=== PATIENT | female | born 1935 | race Caucasian/White ===

== ENCOUNTER 2016-03-10 11:58 | Emergency (ER) | payer MEDICARE ==
[2016-03-10 12:53] LABS: PTT 26.6 SEC (22.9-36.1); Prothrombin Time 13.4 SEC (12.0-14.7)
[2016-03-10 12:54] LABS: #Basophils 0.1 thou/uL (0.0-0.2); #Eosinphils 0.3 thou/uL (0.0-0.7); #Lymphocytes 1.7 thou/uL (1.20-3.40); #Monocytes 0.8 thou/uL (0.11-0.59); #Neutrophils 4.7 thou/uL (1.40-6.50); %Basophils 1.4 % (0.0-1.0); %Eosinophils 4.6 % (0.0-10.0); %Monocytes 9.9 % (0.0-10.0); %Neutrophils 62.2 % (42.0-75.0); Hemoglobin 11.3 g/dL (12.0-16.0); Mean Corpuscular HGB CONC 33.8 g/dL (32.0-36.0); Mean Corpuscular Hemoglobin 28.9 pg (27.0-31.0); Mean Corpuscular Volume 85.7 fl (81.0-99.0); Mean Platelet Volume 8.7 fL (7.4-10.4); Platelet Count 189 thou/uL (130-400); RBC Distribution Width 13.7 % (11.5-14.5); Red Blood Cell (RBC) Count 3.91 mill/uL (4.20-5.40); White Blood Cell (WBC) Count 7.6 thou/uL (4.8-10.8)
[2016-03-10 12:55] LABS: D-Dimer Test 0.57 *mcg/mL (0.27-0.43)
[2016-03-10 13:04] LABS: ALT (SGPT) 15 U/L (0-55); AST (SGOT) 17 U/L (5-34); Albumin 3.5 g/dL (3.4-4.8); Alkaline Phosphatase 86 U/L (40-150); Anion Gap 13 mmol/L (10-20); BUN (Urea Nitrogen) 18 mg/dL (9.8-20.1); Bilirubin, Total 0.3 mg/dL (0.2-1.2); CK (CPK) 57 U/L (29-168); Calc. Creatinine Clearance 0 mL/min (70-130); Carbon Dioxide 25 mmol/L (23-31); Chloride 102 mmol/L (98-107); Estimated GFR-MDRD 77; Globulin 3.1 g/dL (2.4-3.5); Glucose 83 mg/dL (83-110); Potassium 4.3 mmol/L (3.5-5.1); Protein, Total 6.6 g/dL (5.8-8.1); Sodium 136 mmol/L (136-145)
[2016-03-10 13:06] LABS: CKMB 1.4 ng/mL (0-6.6); Troponin I Less than 0.010 ng/mL (< 0.028)
--- NOTE | 2016-03-10 13:40 | RAD ---
RADIOGRAPH CHEST 1 VIEW: HISTORY: An 80-year-old female with acute chest pain. FINDINGS: The thoracic aorta is tortuous and ectatic. There is no evidence of air space density, pneumothorax , or pulmonary edema. The lateral costophrenic angles are sharp. IMPRESSION: 1) No acute pulmonary findings. 2) Ectasia of thoracic aorta. familia [] POS: TIANNA
--- NOTE | 2016-03-10 15:35 | ERRECORD ---
[facility] EMERGENCY RECORD HPI CHEST PAIN CHIEF COMPLAINT: Patient presents for evaluation of chest pain, that was present but has now resolved, Denies automated implantable cardioverter-defibrillator event, Patient presents for evaluation of earlier this morning had a period of chest pressure/heaviness. mild. no sob or nausea or diaphoresis. no radiation. resolved after a brief period but pt cannot tell me how long it lasted. last night felt some discomfort in the left calf and was seen by home health this morning because the mild discomfort persisted. calves measure the same. edwin's neg. no pain to palpation. (13:03 LLDO) HISTORIAN: History provided by patient, History provided by patient's family, DAUGHTER. (13:03 LLDO) LOCATION: Symptoms are generalized. (13:03 LLDO) SEVERITY: Maximum severity of symptoms moderate, Currently there are no symptoms. (14:46 LLDO) TIME COURSE: Sudden onset of symptoms, Symptoms have resolved, are constant, chest pain has resolved but calf pain has not. (14:46 LLDO) ASSOCIATED WITH: No associated symptoms, Denies any other complaints. (14:46 LLDO) EXACERBATED BY: Patient's condition exacerbated by nothing. (14:46 LLDO) RELIEVED BY: Patient's condition relieved by time. (14:46 LLDO) RISK FACTORS: Coronary artery disease risk factors, include known coronary artery disease, include hypertension, Thoracic aortic dissection risk factors, include hypertension, Pulmonary embolism risk factors, not applicable to this patient. (14:46 LLDO) HEART SCORE: Patients history is Slightly Suspicious (0), Patients ECG is normal (0), Patients age is equal to or greater than 65 years (2), Patient has 1 or 2 risk factors (1), Total 3. (14:46 LLDO) WELLS CRITERIA FOR PE: Total 0. (14:46 LLDO) ROS CONSTITUTIONAL: Negative constitutional review of systems. (14:50 LLDO) EYES: Negative eye review of systems, Historian denies eye pain, denies eye redness, denies eye discharge. (14:56 LLDO) ENT: Negative ears, nose, throat review of systems, Historian denies epistaxis, denies rhinorrhea, denies sinus pain, denies sore throat. (14:56 LLDO) CARDIOVASCULAR: Historian reports chest pain, chest pain now resolved. (14:50 LLDO) RESPIRATORY: Negative respiratory review of systems, Historian denies cough, denies shortness of breath, denies sputum. (14:56 LLDO) GI: Negative gastrointestinal review of systems, Historian denies abdominal pain, denies constipation, denies diarrhea, denies nausea, denies vomiting. (14:56 LLDO) &a-1R&a+25V*p+0X*[id number]*c202B*c15G*c2P*p-0X&a-25V&a+1R Name: Vianey Downing : 1935 F80 MedRec: [id number] AcctNum: [id number] Prepared: Leighann Mar 10, 2016 15:39 by Interface Page 1 of 5 pMD [facility] EMERGENCY RECORD GENITOURINARY FEMALE: Negative genitourinary review of systems, Historian denies dysuria, denies frequency, denies urgency. (14:56 LLDO) MUSCULOSKELETAL: ONLY IN HPI W/ LEFT CALF PAIN. (14:50 LLDO) SKIN: Negative skin review of systems, Historian denies cellulitis, denies rash, denies skin changes, denies skin lesions. (14:56 LLDO) NEUROLOGIC: Negative neurologic review of systems, Historian denies confusion, denies dizziness, denies focal weakness, denies mental status changes. (14:56 LLDO) HEMO/LYMPHATIC: Normal hematologic/lymphatic system review, Historian denies abnormal blood clotting, denies gum bleeding, denies petechiae. (14:56 LLDO) ALLERGIC/IMMUNOLOGIC: Normal allergy/immunologic system review, Historian denies eczema, denies environmental allergies, denies food allergies. (14:56 LLDO) PSYCHIATRIC: Negative psychiatric review of systems, Historian denies alcohol abuse, denies anxiety, denies depression, denies drug abuse, denies hallucinations. (14:56 LLDO) NOTES: All systems reviewed, negative except as described above. (14:50 LLDO) PAST MEDICAL HISTORY MEDICAL HISTORY: Past medical history includes neurological disease, Alzheimer's disease, dementia, Past medical history includes pulmonary disease, chronic obstructive pulmonary disease, chronic bronchitis, Past medical history includes cardiac history, Past medical history includes history of hypertension, which has been treated, Patient is compliant, Past medical history includes musculoskeletal disorder, osteoporosis, Past medical history includes pulmonary disease, chronic obstructive pulmonary disease. (12:23 CJEF) FEMALE SURGICAL HISTORY: Surgical history of hysterectomy, L MASTECTOMY. NASAL SX. (12:23 CJEF) PSYCHIATRIC HISTORY: Notes: DEPRESSION DEMENTIA. (12:23 CJEF) NOTES: Nursing records reviewed, Agree with nursing records, Old chart reviewed, Medication list reviewed. (14:55 LLDO) KNOWN ALLERGIES naproxen Sulfa (Sulfonamide Antibiotics) Zithromax Oral CURRENT MEDICATIONS Spiriva with HandiHaler: CAPSULE, WITH INHALATION DEVICE : Strength - 18 mcg : INHALATION Patient Dose: once a day. (12:39 CJEF) &a-1R&a+25V*p+0X*[id number]*c202B*c15G*c2P*p-0X&a-25V&a+1R Name: Vianey Downing : 1935 F80 MedRec: [id number] AcctNum: [id number] Prepared: [facility] Mar 10, 2016 15:39 by Interface Page 2 of 5 pMD [facility] EMERGENCY RECORD Zoloft: TABLET : Strength - 100 mg : ORAL Patient Dose: 100 mg Oral once a day. (12:39 CJEF) Daliresp: TABLET : Strength - 500 mcg : ORAL Patient Dose: 500 mg Oral once a day. (12:40 CJEF) Evista: TABLET : Strength - 60 mg : ORAL Patient Dose: 60 mg Oral once a day. (12:40 CJEF) Miralax: POWDER IN PACKET (EA) : Strength - 17 gram : ORAL Patient Dose: 17 g Oral As Needed. (12:40 CJEF) Singulair: TABLET : Strength - 10 mg : ORAL Patient Dose: 10 mg once a day (in the evening). (12:41 CJEF) Namenda: TABLET : Strength - 10 mg : ORAL Patient Dose: 10 mg Oral 2 times a day. (12:41 CJEF) Cardizem CD: CAPSULE, EXT RELEASE 24 HR : Strength - 120 mg : ORAL Patient Dose: 120 mg Oral once a day. (12:42 CJEF) ZyrTEC: CAPSULE : Strength - 10 mg : ORAL Patient Dose: 10 mg Oral once a day. (12:42 CJEF) Symbicort: HFA AEROSOL WITH ADAPTER (GRAM) : Strength - 160 mcg-4.5 mcg/actuation : INHALATION Patient Dose: 2 puff(s) Inhaler 2 times a day. (12:43 CJEF) Tessalon Perles: CAPSULE : Strength - 100 mg : ORAL Patient Dose: 200 mg Oral As Needed. (12:44 CJEF) aspirin: TABLET : Strength - 81 mg : ORAL Patient Dose: 81 mg Oral once a day. (12:44 CJEF) ProAir HFA: HFA AEROSOL WITH ADAPTER (GRAM) : Strength - 90 mcg : INHALATION Patient Dose: 2 puff(s) Inhaler every 6 hours PRN. (12:45 CJEF) Wellbutrin: TABLET : Strength - 100 mg : ORAL Patient Dose: Unknown. (12:47 CJEF) VITAL SIGNS VITAL SIGNS: BP: 138/77, Pulse: 74, Resp: 18, Pain: 3, O2 sat: 96 on Room Air, Time: 03/10/2016 12:10. (12:10 CJEF) BP: 136/85, Pulse: 87, Resp: 18, Temp: 98.2 (Oral), Pain: 3, O2 sat: 96 on Room Air, Time: 03/10/2016 12:45. (12:45 CJEF) BP: 135/92, Pulse: 81, Resp: 16, Pain: 3, O2 sat: 99 on Room Air, Time: 03/10/2016 13:41. (13:41 CJEF) &a-1R&a+25V*p+0X*[id number]*c202B*c15G*c2P*p-0X&a-25V&a+1R Name: Vianey Downing : 1935 F80 MedRec: [id number] AcctNum: [id number] Prepared: [facility] Mar 10, 2016 15:39 by Interface Page 3 of 5 pMD [facility] EMERGENCY RECORD BP: 140/85, Pulse: 78, Resp: 18, O2 sat: 98 on Room Air, Time: 03/10/2016 14:38. (14:38 CJEF) BP: 135/82, Pulse: 81, Resp: 18, Temp: 98 (Oral), Pain: 3, O2 sat: 98 on Room Air, Time: 03/10/2016 15:31. (15:31 [facility]) PHYSICAL EXAM CONSTITUTIONAL: Vital Signs Reviewed, Patient afebrile, Pulse normal, Blood pressure normal bilaterally, Respiratory rate normal, Patient appears, uncomfortable, Patient appears, in mild pain distress, Patient alert and oriented to person, place and time, Nursing notes reviewed. (14:52 LLDO) HEAD: Head exam normal, Head exam included findings of head atraumatic, normocephalic. (14:56 LLDO) EYES: Eye exam normal, Eye exam included findings of eyelids normal to inspection, Pupils equally round and reactive to light, Extraocular muscles intact. (14:56 LLDO) ENT: ENT exam normal, Ear exam normal, Nose exam normal. (14:56 LLDO) NECK: Neck exam normal, Neck exam included findings of normal range of motion, Trachea midline, no meningeal signs, no tenderness. (14:56 LLDO) RESPIRATORY CHEST: Respiratory and chest exam normal, Respiratory exam included findings of, Chest exam included findings of chest movement symmetrical, Chest expansion equal. (14:56 LLDO) CARDIOVASCULAR: Cardiovascular assessment normal, Cardiovascular exam included findings of heart rate regular rate and rhythm, Heart sounds normal. (14:56 LLDO) ABDOMEN FEMALE: Abdominal exam normal, Abdominal exam included findings of abdomen nontender, Bowel sounds normal, no peritoneal signs. (14:56 LLDO) BACK: Back exam normal, Back exam included findings of normal inspection, range of motion normal. (14:56 LLDO) UPPER EXTREMITY: Upper extremity exam normal, Upper extremity exam included findings of inspection normal, Range of motion normal. (14:56 LLDO) LOWER EXTREMITY: Lower extremity exam included findings of inspection normal, Range of motion normal, Motor strength, 2/5 on the left, 3/5 on the right, Sensation intact, Posterior tibial pulse normal, Pedal pulse normal, Edwin's negative, Calf tenderness, to the left lower extremity, very mild. (14:52 LLDO) NEURO: Neuro exam findings include patient oriented to person, place and time, Speech normal, Gait normal, Memory normal, Cranial nerves intact, Deep tendon reflexes normal, Focal motor deficits include, Focal sensory deficits include, Cerebellar deficits include. (14:52 LLDO) SKIN: Skin exam normal, Skin exam included findings of skin warm, dry, and normal in color, no rash. (14:56 LLDO) &a-1R&a+25V*p+0X*w2945V*c202B*c15G*c2P*p-0X&a-25V&a+1R Name: Vianey Downing : 1935 F80 MedRec: [id number] AcctNum: [id number] Prepared: Leighann Mar 10, 2016 15:39 by Interface Page 4 of 5 pMD [facility] EMERGENCY RECORD PSYCHIATRIC: Psychiatric exam normal, Psychiatric exam included findings of patient oriented to person place and time, Normal affect. (14:56 LLDO) DOCTOR NOTES (15:27 LLDO) TEXT: accepted by dr. delong at [facility] PROBLEM LIST No recorded problems DIAGNOSIS (15:28 LLDO) FINAL: PRIMARY: dvt, left lower leg. PRESCRIPTION No recorded prescriptions DISPOSITION PATIENT: Disposition Type: Transfer, Disposition: [facility]. (15:28 LLDO) Patient left the department. (15:36 [facility]) Daniels: SARAHI=LALO Stafford, Ghada LLDO=MD Bisi, Misbah &a-1R&a+25V*p+0X*[id number]*c202B*c15G*c2P*p-0X&a-25V&a+1R Name: Vianey Downing : 1935 F80 MedRec: [id number] AcctNum: [id number] Prepared: Leighann Mar 10, 2016 15:39 by Interface Page 5 of 5 pMD [facility]
--- NOTE | 2016-03-10 15:41 | PICIS ---
[facility] EMERGENCY RECORD TRIAGE (MonMar 10, 2016 12:11 CJEF) TRIAGE NOTES: LEFT CALF PAIN AND LEFT CHEST PRESSURE. (MonMar 10, 2016 12:11 CJEF) PATIENT: NAME: Vianey Downing, AGE: 80, GENDER: female, : Sat 1935, TIME OF GREET: MonMar 10, 2016 11:59, PREFERRED LANGUAGE: Armenian, ETHNICITY: Not or , ECODE BILLING MAP: [facility], SSN: [id number], Zip Code: [address], KG WEIGHT: 40.82, PHONE: (BEATRIS), , , PERSON ID: [id number]. (MonMar 10, 2016 12:11 CJEF) COMPLAINT: LT CALF PAIN/ CHEST PRESSURE. (MonMar 10, 2016 12:11 CJEF) ADMISSION: URGENCY: 2 Emergent, ADMISSION SOURCE: Doctor's Office, TRANSPORT: Walk-in, BED: TRIAGE. (MonMar 10, 2016 12:11 CJEF) ASSESSMENT: Assessment: PT REPORTS LEFT CALF PAIN THAT STARTED LAST NIGHT. PT WAS SEEN BY HOME HEALTH NURSE WHO REPORTED THAT PT CALFS MEASURED THE SAME AND THAT NO WARMTH WAS NOTED TO THE LEFT CALF. PT ALSO REPORTS LEFT CHEST PRESSURE THAT STARTED THIS MORNING, THOUGH IS NO LONGER PRESENT. (12:23 CJEF) PAIN: Patient complains of pain described as, Location LEFT CALF. (12:23 CJEF) IMMUNIZATIONS: Flu vaccine up to date, Tetanus not up to date, Pneumococcal vaccine up to date. (12:23 CJEF) SIRS SCORING: Heart Rate 55-109 (0), Temp range 96.8-101.1 (0), respiratory rate 12-24 (0), Mental Status altered: no (0), Infection or Suspected Infection: No. (12:23 CJEF) TRIAGE SCREENING: Patient denies suicidal ideation, Patient denies presence of domestic violence. (12:23 CJEF) LMP: LMP: Hysterectomy. (12:23 CJEF) PROVIDERS: TRIAGE NURSE: Ghada Stafford RN. (MonMar 10, 2016 12:11 CJEF) VITAL SIGNS: BP 138/77, Pulse 74, Resp 18, Pain 3, O2 Sat 96, on Room Air, Time 03/10/2016 12:10. (12:10 CJEF) PREVIOUS VISIT ALLERGIES: naproxen, Sulfa (Sulfonamide Antibiotics), Zithromax Oral. (MonMar 10, 2016 12:11 CJEF) naproxen, Sulfa (Sulfonamide Antibiotics), Zithromax Oral. (12:23 CJEF) KNOWN ALLERGIES naproxen Sulfa (Sulfonamide Antibiotics) Zithromax Oral CURRENT MEDICATIONS Spiriva with HandiHaler: CAPSULE, WITH INHALATION DEVICE : Strength - 18 mcg : INHALATION Patient Dose: once a day. (12:39 CJEF) Zoloft: TABLET : Strength - 100 mg : ORAL Patient Dose: 100 mg Oral once a day. (12:39 CJEF) &a-1R&a+25V*p+0X*v6899H*c202B*c15G*c2P*p-0X&a-25V&a+1R Name: Vianey Downing Ace : 1935 F80 MedRec: [id number] AcctNum: [id number] Prepared: MonMar 10, 2016 15:45 by Interface Page 1 of 13 pMD [facility] EMERGENCY RECORD Daliresp: TABLET : Strength - 500 mcg : ORAL Patient Dose: 500 mg Oral once a day. (12:40 CJEF) Evista: TABLET : Strength - 60 mg : ORAL Patient Dose: 60 mg Oral once a day. (12:40 CJEF) Miralax: POWDER IN PACKET (EA) : Strength - 17 gram : ORAL Patient Dose: 17 g Oral As Needed. (12:40 CJEF) Singulair: TABLET : Strength - 10 mg : ORAL Patient Dose: 10 mg once a day (in the evening). (12:41 CJEF) Namenda: TABLET : Strength - 10 mg : ORAL Patient Dose: 10 mg Oral 2 times a day. (12:41 CJEF) Cardizem CD: CAPSULE, EXT RELEASE 24 HR : Strength - 120 mg : ORAL Patient Dose: 120 mg Oral once a day. (12:42 CJEF) ZyrTEC: CAPSULE : Strength - 10 mg : ORAL Patient Dose: 10 mg Oral once a day. (12:42 CJEF) Symbicort: HFA AEROSOL WITH ADAPTER (GRAM) : Strength - 160 mcg-4.5 mcg/actuation : INHALATION Patient Dose: 2 puff(s) Inhaler 2 times a day. (12:43 CJEF) Tessalon Perles: CAPSULE : Strength - 100 mg : ORAL Patient Dose: 200 mg Oral As Needed. (12:44 CJEF) aspirin: TABLET : Strength - 81 mg : ORAL Patient Dose: 81 mg Oral once a day. (12:44 CJEF) ProAir HFA: HFA AEROSOL WITH ADAPTER (GRAM) : Strength - 90 mcg : INHALATION Patient Dose: 2 puff(s) Inhaler every 6 hours PRN. (12:45 CJEF) Wellbutrin: TABLET : Strength - 100 mg : ORAL Patient Dose: Unknown. (12:47 CJEF) VITAL SIGNS VITAL SIGNS: BP: 138/77, Pulse: 74, Resp: 18, Pain: 3, O2 sat: 96 on Room Air, Time: 03/10/2016 12:10. (12:10 CJEF) BP: 136/85, Pulse: 87, Resp: 18, Temp: 98.2 (Oral), Pain: 3, O2 sat: 96 on Room Air, Time: 03/10/2016 12:45. (12:45 CJEF) BP: 135/92, Pulse: 81, Resp: 16, Pain: 3, O2 sat: 99 on Room Air, Time: 03/10/2016 13:41. (13:41 CJEF) BP: 140/85, Pulse: 78, Resp: 18, O2 sat: 98 on Room Air, Time: 03/10/2016 14:38. (14:38 CJEF) BP: 135/82, Pulse: 81, Resp: 18, Temp: 98 (Oral), Pain: 3, O2 sat: 98 on &a-1R&a+25V*p+0X*j4631A*c202B*c15G*c2P*p-0X&a-25V&a+1R Name: Vianey Downing : 1935 F80 MedRec: [id number] AcctNum: [id number] Prepared: [facility] Mar 10, 2016 15:45 by Interface Page 2 of 13 pMD [facility] EMERGENCY RECORD Room Air, Time: 03/10/2016 15:31. (15:31 CJEF) NURSING ASSESSMENT: CARDIOVASCULAR (12:23 CJEF) CONSTITUTIONAL: Complex assessment performed, Patient arrives ambulatory, Unsteady gait, Assistance to cart, History obtained from, DAUGHTER, Patient appears, confused, Patient cooperative, Patient alert, Patient is, oriented to person, confused, Skin warm, Skin dry, Skin normal in color, Mucous membranes pink, Mucous membranes moist, Patient is well-groomed, PT REPORTS LEFT CALF PAIN THAT STARTED LAST NIGHT. PT WAS SEEN BY HOME HEALTH NURSE WHO REPORTED THAT PT CALFS MEASURED THE SAME AND THAT NO WARMTH WAS NOTED TO THE LEFT CALF. PT ALSO REPORTS LEFT CHEST PRESSURE THAT STARTED THIS MORNING, THOUGH IS NO LONGER PRESENT. PAIN: aching pain, to the left chest. CARDIOVASCULAR: Cardiovascular assessment findings include heart rate normal, Heart rhythm normal sinus, Heart sounds normal, S1, S2, no associated dyspnea. RESPIRATORY/CHEST: Breath sounds clear, Respiratory assessment findings include respiratory effort easy, Respirations regular, Conversing normally, Neck and chest exam findings include trachea midline, Chest expansion equal, Chest movement symmetrical, no signs of distress, no associated cough noted, no associated fever. NOTES: Patient tolerated procedure well. SAFETY: Side rails up, Cart/Stretcher in lowest position, Family at bedside, Call light within reach, Hospital ID band on. NURSING ASSESSMENT: FALL RISK (12:20 CJEF) FALL RISK: Fall risk assessment findings include: History of falls (5), No bed rest greater than 2 days (0), No use of level of consciousness altering agents with mentation or cognitive changes (0), No change in blood pressure (0), Sensory deficits (1), Impaired mobility (3), Neurologic diagnosis (3), No elimination problems (0), Confusion (3), Total score 15, Fall risk. HENDRICH II FALL RISK: Hendrich II Fall Risk assessment findings include patient confused, disoriented or impulsive(4), not symptomatic or depressed, no altered elimination, no dizziness or vertigo, female, no antiepileptics (anticonvulsants) administered, no Benzodiazepines administered, Unable to rise without assistance during test(4), Total score 8. NURSING ASSESSMENT: SKIN (12:19 CJEF) SKIN: Skin assessment findings include skin warm, Skin dry, Skin normal in color. HIEU SCALE: (3) Sensory perception slightly limited, (4) Skin is rarely moist, (3) Patient walks occasionally, (3) Slightly limited mobility, (3) Adequate nutrition, (3) Patient has no apparent problem moving, Hieu Risk Total: 22. &a-1R&a+25V*p+0X*v1519U*c202B*c15G*c2P*p-0X&a-25V&a+1R Name: Vianey Downing : 1935 F80 MedRec: [id number] AcctNum: [id number] Prepared: Leighann Mar 10, 2016 15:45 by Interface Page 3 of 13 pMD [facility] EMERGENCY RECORD NOTES: Patient tolerated procedure well. SAFETY: Side rails up, Cart/Stretcher in lowest position, Family at bedside, Call light within reach, Hospital ID band on. NURSING PROCEDURE: BEDSIDE RADIOLOGY (13:03 CJEF) PATIENT IDENTIFIER: Patient actively involved in identification process, Patient's identity verified by patient stating name, Patient's identity verified by patient stating date. BEDSIDE RADIOLOGY: Portable chest x-ray performed. NOTES: Patient tolerated procedure well. SAFETY: Side rails up, Cart/Stretcher in lowest position, Family at bedside, Call light within reach, Hospital ID band on. NURSING PROCEDURE: BEDSIDE SIRS TESTING (13:52 CJEF) SCORES: Heart Rate 55-109 (0), Temp range 96.8-101.1 (0), respiratory rate 12-24 (0), Latest WBC 3-14.9 (0), Mental Status altered: no (0), Infection or Suspected Infection: No. NURSING PROCEDURE: OPERATIONS ACCOUNTANT (12:12 CJEF) PATIENT IDENTIFIER: Patient actively involved in identification process, Patient's identity verified by patient stating name, Patient's identity verified by patient stating date. OPERATIONS ACCOUNTANT: Cardiac monitoring indicated for complaint of chest pain, Patient placed on court recording monitor, Heart rate: 73, showing normal sinus rhythm, Patient placed on non-invasive blood pressure monitor, with disposable blood pressure cuff applied, Patient placed on continuous pulse oximetry, Adult/pediatric oxisensor applied. FOLLOW-UP: After procedure, alarms set and on, After procedure, patient tolerating monitoring. NOTES: Patient tolerated procedure well. SAFETY: Side rails up, Cart/Stretcher in lowest position, Family at bedside, Call light within reach, Hospital ID band on. NURSING PROCEDURE: EKG CHART (12:17 CJEF) PATIENT IDENTIFIER: Patient actively involved in identification process, Patient's identity verified by patient stating name, Patient's identity verified by patient stating date. EKG: EKG indicated for complaint of chest pain, 12 lead EKG performed on the left chest, first EKG. FOLLOW-UP: After procedure, EKG for interpretation given to Dr. MATHEWS. NOTES: Patient tolerated procedure well. SAFETY: Side rails up, Cart/Stretcher in lowest position, Family at bedside, Call light within reach, Hospital ID band on. NURSING PROCEDURE: IV PATIENT IDENITIFIER: Patient actively involved in identification process, Patient's identity verified by patient stating name, Patient's identity verified by patient stating date. (12:37 &a-1R&a+25V*p+0X*s0662R*c202B*c15G*c2P*p-0X&a-25V&a+1R Name: Vianey Downing : 1935 F80 MedRec: [id number] AcctNum: [id number] Prepared: [facility] Mar 10, 2016 15:45 by Interface Page 4 of 13 pMD [facility] EMERGENCY RECORD CJEF) IV SITE 1: IV therapy indicated for hydration, IV therapy indicated for medication administration, IV established, to the right antecubital, using an 18 gauge catheter, in one attempt, IV site prepped with CHLORAPREP, Saline lock established, Flushed with normal saline (mls): 10, Labs drawn at time of placement, labeled in the presence of the patient and sent to lab. (12:37 CJEF) FOLLOW-UP SITE 1: After procedure, sterile transparent dressing applied. (12:37 CJEF) After procedure, 2x2 dressing applied, IV discontinued, due to patient being discharged, catheter intact. (15:32 CJEF) NOTES: Patient tolerated procedure well. (12:37 CJEF) SAFETY: Side rails up, Cart/Stretcher in lowest position, Family at bedside, Call light within reach, Hospital ID band on. (12:37 CJEF) NURSING PROCEDURE: NURSE NOTES NURSES NOTES: Patient in no apparent distress, Patient resting quietly, Warm blanket given to patient, Notes: PT RESTING IN BED QUIETLY WITH FAMILY AT BEDSIDE. NO DISTRESS NOTED. (12:26 CJEF) Patient in no apparent distress, Patient resting quietly, Notes: PT RESTING IN BED QUIETLY WITH FAMILY AT BEDSIDE. NO DISTRESS NOTED. (12:47 CJEF) Patient in no apparent distress, Patient resting quietly, Notes: PT RESTING IN BED QUIETLY WITH FAMILY AT BEDSIDE. NO DISTRESS NOTED. (13:40 CJEF) Patient in no apparent distress, Patient resting quietly, Notes: PT RESTING IN BED QUIETLY WITH FAMILY AT BEDSIDE. NO DISTRESS NOTED. (14:38 CJEF) Patient assisted to bathroom with steady gait, Patient in no apparent distress, Patient resting quietly. (15:22 CJEF) NURSING PROCEDURE: TRANSFER (15:32 CJEF) TRANSFER: Reason for transfer need for specialized care, Accepting institution: [facility], Accepting physician: BEVERLY, Transported by private vehicle, PT TRANSFERRING POV WITH DAUGHTER DRIVING PT, Report called to receiving facility, MADDIE RN, Provided opportunity to answer questions, Summary of Care printed, Copy of patient record prepared for receiving facility, Copy of diagnostic studies, Status of patient's valuables documented on chart, Medication reconciliation form prepared and sent to receiving facility, Patient consent for transfer signed, Patient given appropriate sedation for safe transport, Family member contacted, DAUGHTER AT BEDSIDE. BELONGINGS: Belongings remain with patient. NOTES: Patient tolerated procedure well. SAFETY: Side rails up, Cart/Stretcher in lowest position, Family at bedside, Call light within reach, Hospital ID band on. ORDER DETAILS &a-1R&a+25V*p+0X*i8222U*c202B*c15G*c2P*p-0X&a-25V&a+1R Name: Vianey Downing : 1935 F80 MedRec: [id number] AcctNum: [id number] Prepared: MonMar 10, 2016 15:45 by Interface Page 5 of 13 pMD [facility] EMERGENCY RECORD Order Name: B type Natriuretic Peptide, Status: Active, Time: 12:23 03/10/2016, User: TIMO, - Ordered for: MD Mathews Lloyd, - Entered by: MD Mathews Lloyd - [facility] Mar 10, 2016 12:23, - Quantity: 1, Order Name: OPERATIONS ACCOUNTANT ED, Status: Done, Time: 12:25 03/10/2016, User: CJEF, - Ordered for: MD Mathews Lloyd, - Entered by: MD Mathews Lloyd - [facility] Mar 10, 2016 12:23, - Quantity: 1, Order Name: Cardiac Profile w/CKMB & Troponin - I, Status: Active, Time: 12:23 03/10/2016, User: TIMO, - Ordered for: MD Mathews Lloyd, - Entered by: MD Mathews Lloyd - [facility] Mar 10, 2016 12:23, - Quantity: 1, Order Name: CBC with Differential, Status: Active, Time: 12:23 03/10/2016, User: LLDO, - Ordered for: MD Mathews Lloyd, - Entered by: MD Mathews Lloyd - [facility] Mar 10, 2016 12:23, - Quantity: 1, Order Name: CK (CPK), Status: Active, Time: 12:23 03/10/2016, User: LLDO, - Ordered for: MD Mathews Lloyd, - Entered by: MD Mathews Lloyd - [facility] Mar 10, 2016 12:23, - Quantity: 1, Order Name: Comprehensive Metabolic Panel, Status: Active, Time: 12:23 03/10/2016, User: LLDO, - Ordered for: MD Mathews Lloyd, - Entered by: MD Mathews Lloyd - [facility] Mar 10, 2016 12:23, - Quantity: 1, Order Name: D-Dimer (Quantitative), Status: Active, Time: 12:23 03/10/2016, User: LLDO, - Ordered for: MD Mathews Lloyd, - Entered by: MD Mathews Lloyd - [facility] Mar 10, 2016 12:23, - Quantity: 1, Order Name: EKG 12 Lead in Emergency Room, Status: Active, Time: 12:23 03/10/2016, User: LLDO, - Ordered for: MD Mathews Lloyd, - Entered by: MD Mathews Lloyd - [facility] Mar 10, 2016 12:23, - Quantity: 1, Order Name: ERRT Oxygen Usage ER, Status: Active, Time: 12:23 03/10/2016, User: LLDO, - Ordered for: MD Mathews Lloyd, - Entered by: MD Mathews Lloyd - Leighann Mar 10, 2016 12:23, - Quantity: 1, Order Name: ERRT Pulse Oximeter ER, Status: Active, Time: 12:23 03/10/2016, User: LLDO, - Ordered for: MD Mathews Lloyd, - Entered by: MD Mathews Lloyd - Leighann Mar 10, 2016 12:23, &a-1R&a+25V*p+0X*d5718K*c202B*c15G*c2P*p-0X&a-25V&a+1R Name: Vianey Downing : 1935 F80 MedRec: [id number] AcctNum: [id number] Prepared: MonMar 10, 2016 15:45 by Interface Page 6 of 13 [facility] EMERGENCY RECORD - Quantity: 1, Order Name: Magnesium, Status: Active, Time: 12:23 03/10/2016, User: LLDO, - Ordered for: MD Mathews Lloyd, - Entered by: MD Mathews Lloyd - Leighann Mar 10, 2016 12:23, - Quantity: 1, Order Name: Protime with INR, Status: Active, Time: 12:23 03/10/2016, User: LLDO, - Ordered for: MD Mathews Lloyd, - Entered by: MD Mathews Lloyd - Leighann Mar 10, 2016 12:23, - Quantity: 1, Order Name: PTT, Status: Active, Time: 12:23 03/10/2016, User: LLDO, - Ordered for: MD Mathews Lloyd, - Entered by: MD Mathews Lloyd - Leighann Mar 10, 2016 12:23, - Quantity: 1, Order Name: SALINE LOCK, Status: Done, Time: 12:37 03/10/2016, User: CJEF, - Ordered for: MD Mathews Lloyd, - Entered by: MD Mathews Lloyd - Leighann Mar 10, 2016 12:23, - Quantity: 1, Order Name: XR Chest 1 View Portable, Status: Active, Time: 12:23 03/10/2016, User: TIMO, - Ordered for: MD Mathews Lloyd, - Entered by: MD Mathews Lloyd - [facility] Mar 10, 2016 12:23, - Quantity: 1. HPI CHEST PAIN CHIEF COMPLAINT: Patient presents for evaluation of chest pain, that was present but has now resolved, Denies automated implantable cardioverter-defibrillator event, Patient presents for evaluation of earlier this morning had a period of chest pressure/heaviness. mild. no sob or nausea or diaphoresis. no radiation. resolved after a brief period but pt cannot tell me how long it lasted. last night felt some discomfort in the left calf and was seen by home health this morning because the mild discomfort persisted. calves measure the same. james's neg. no pain to palpation. (13:03 LLDO) HISTORIAN: History provided by patient, History provided by patient's family, DAUGHTER. (13:03 LLDO) LOCATION: Symptoms are generalized. (13:03 LLDO) SEVERITY: Maximum severity of symptoms moderate, Currently there are no symptoms. (14:46 LLDO) TIME COURSE: Sudden onset of symptoms, Symptoms have resolved, are constant, chest pain has resolved but calf pain has not. (14:46 LLDO) ASSOCIATED WITH: No associated symptoms, Denies any other complaints. (14:46 LLDO) EXACERBATED BY: Patient's condition exacerbated by nothing. (14:46 LLDO) RELIEVED BY: Patient's condition relieved by time. (14:46 LLDO) &a-1R&a+25V*p+0X*w4389Z*c202B*c15G*c2P*p-0X&a-25V&a+1R Name: Vianey Downing : 1935 F80 MedRec: [id number] AcctNum: [id number] Prepared: [facility] Mar 10, 2016 15:45 by Interface Page 7 of 13 pMD [facility] EMERGENCY RECORD RISK FACTORS: Coronary artery disease risk factors, include known coronary artery disease, include hypertension, Thoracic aortic dissection risk factors, include hypertension, Pulmonary embolism risk factors, not applicable to this patient. (14:46 LLDO) HEART SCORE: Patients history is Slightly Suspicious (0), Patients ECG is normal (0), Patients age is equal to or greater than 65 years (2), Patient has 1 or 2 risk factors (1), Total 3. (14:46 LLDO) WELLS CRITERIA FOR PE: Total 0. (14:46 LLDO) ROS CONSTITUTIONAL: Negative constitutional review of systems. (14:50 LLDO) EYES: Negative eye review of systems, Historian denies eye pain, denies eye redness, denies eye discharge. (14:56 LLDO) ENT: Negative ears, nose, throat review of systems, Historian denies epistaxis, denies rhinorrhea, denies sinus pain, denies sore throat. (14:56 LLDO) CARDIOVASCULAR: Historian reports chest pain, chest pain now resolved. (14:50 LLDO) RESPIRATORY: Negative respiratory review of systems, Historian denies cough, denies shortness of breath, denies sputum. (14:56 LLDO) GI: Negative gastrointestinal review of systems, Historian denies abdominal pain, denies constipation, denies diarrhea, denies nausea, denies vomiting. (14:56 LLDO) GENITOURINARY FEMALE: Negative genitourinary review of systems, Historian denies dysuria, denies frequency, denies urgency. (14:56 LLDO) MUSCULOSKELETAL: ONLY IN HPI W/ LEFT CALF PAIN. (14:50 LLDO) SKIN: Negative skin review of systems, Historian denies cellulitis, denies rash, denies skin changes, denies skin lesions. (14:56 LLDO) NEUROLOGIC: Negative neurologic review of systems, Historian denies confusion, denies dizziness, denies focal weakness, denies mental status changes. (14:56 LLDO) HEMO/LYMPHATIC: Normal hematologic/lymphatic system review, Historian denies abnormal blood clotting, denies gum bleeding, denies petechiae. (14:56 LLDO) ALLERGIC/IMMUNOLOGIC: Normal allergy/immunologic system review, Historian denies eczema, denies environmental allergies, denies food allergies. (14:56 LLDO) PSYCHIATRIC: Negative psychiatric review of systems, Historian denies alcohol abuse, denies anxiety, denies depression, denies drug abuse, denies hallucinations. (14:56 LLDO) NOTES: All systems reviewed, negative except as described above. (14:50 LLDO) PAST MEDICAL HISTORY &a-1R&a+25V*p+0X*c0533E*c202B*c15G*c2P*p-0X&a-25V&a+1R Name: Vianey Downing : 1935 F80 MedRec: [id number] AcctNum: [id number] Prepared: Leighann Mar 10, 2016 15:45 by Interface Page 8 of 13 pMD [facility] EMERGENCY RECORD MEDICAL HISTORY: Past medical history includes neurological disease, Alzheimer's disease, dementia, Past medical history includes pulmonary disease, chronic obstructive pulmonary disease, chronic bronchitis, Past medical history includes cardiac history, Past medical history includes history of hypertension, which has been treated, Patient is compliant, Past medical history includes musculoskeletal disorder, osteoporosis, Past medical history includes pulmonary disease, chronic obstructive pulmonary disease. (12:23 CJEF) FEMALE SURGICAL HISTORY: Surgical history of hysterectomy, L MASTECTOMY. NASAL SX. (12:23 CJEF) PSYCHIATRIC HISTORY: Notes: DEPRESSION DEMENTIA. (12:23 CJEF) NOTES: Nursing records reviewed, Agree with nursing records, Old chart reviewed, Medication list reviewed. (14:55 LLDO) PHYSICAL EXAM CONSTITUTIONAL: Vital Signs Reviewed, Patient afebrile, Pulse normal, Blood pressure normal bilaterally, Respiratory rate normal, Patient appears, uncomfortable, Patient appears, in mild pain distress, Patient alert and oriented to person, place and time, Nursing notes reviewed. (14:52 LLDO) HEAD: Head exam normal, Head exam included findings of head atraumatic, normocephalic. (14:56 LLDO) EYES: Eye exam normal, Eye exam included findings of eyelids normal to inspection, Pupils equally round and reactive to light, Extraocular muscles intact. (14:56 LLDO) ENT: ENT exam normal, Ear exam normal, Nose exam normal. (14:56 LLDO) NECK: Neck exam normal, Neck exam included findings of normal range of motion, Trachea midline, no meningeal signs, no tenderness. (14:56 LLDO) RESPIRATORY CHEST: Respiratory and chest exam normal, Respiratory exam included findings of, Chest exam included findings of chest movement symmetrical, Chest expansion equal. (14:56 LLDO) CARDIOVASCULAR: Cardiovascular assessment normal, Cardiovascular exam included findings of heart rate regular rate and rhythm, Heart sounds normal. (14:56 LLDO) ABDOMEN FEMALE: Abdominal exam normal, Abdominal exam included findings of abdomen nontender, Bowel sounds normal, no peritoneal signs. (14:56 LLDO) BACK: Back exam normal, Back exam included findings of normal inspection, range of motion normal. (14:56 LLDO) UPPER EXTREMITY: Upper extremity exam normal, Upper extremity exam included findings of inspection normal, Range of motion normal. (14:56 LLDO) LOWER EXTREMITY: Lower extremity exam included findings of &a-1R&a+25V*p+0X*z3736V*c202B*c15G*c2P*p-0X&a-25V&a+1R Name: Vianey Downing : 1935 F80 MedRec: [id number] AcctNum: [id number] Prepared: MonMar 10, 2016 15:45 by Interface Page 9 of 13 pMD [facility] EMERGENCY RECORD inspection normal, Range of motion normal, Motor strength, 2/5 on the left, 3/5 on the right, Sensation intact, Posterior tibial pulse normal, Pedal pulse normal, James's negative, Calf tenderness, to the left lower extremity, very mild. (14:52 LLDO) NEURO: Neuro exam findings include patient oriented to person, place and time, Speech normal, Gait normal, Memory normal, Cranial nerves intact, Deep tendon reflexes normal, Focal motor deficits include, Focal sensory deficits include, Cerebellar deficits include. (14:52 LLDO) SKIN: Skin exam normal, Skin exam included findings of skin warm, dry, and normal in color, no rash. (14:56 LLDO) PSYCHIATRIC: Psychiatric exam normal, Psychiatric exam included findings of patient oriented to person place and time, Normal affect. (14:56 LLDO) EVENTS TRANSFER: Triage to Emergency Triage. (Leighann Mar 10, 2016 12:11 CJEF) Emergency Triage to Main ED -01. (12:11 CJEF) Removed from Emergency Main ED -01. (15:36 CJEF) DOCTOR NOTES (15:27 LLDO) TEXT: accepted by dr. delong at [facility]. PROBLEM LIST No recorded problems DIAGNOSIS (15:28 LLDO) FINAL: PRIMARY: dvt, left lower leg. DISPOSITION PATIENT: Disposition Type: Transfer, Disposition: [facility]. (15:28 LLDO) Patient left the department. (15:36 CJEF) PRESCRIPTION No recorded prescriptions IMAGING *EKG: Image captured from scanner. (15:23 LWAL) *SUPPLY CHARGE SHEET: Image captured from scanner. (15:42 CJEF) *MEMORANDUM OF TRANSFER: Image captured from scanner. (15:44 LWAL) CONSENTS: Image captured from scanner. (15:44 LWAL) TRANSFER QI WORKSHEET: Image captured from scanner. (15:45 LWAL) Page 2 added. Image captured from scanner. (15:45 LWAL) ADMIN (15:28 LLDO) DIGITAL SIGNATURE: MD Bisi, Misbah. &a-1R&a+25V*p+0X*[id number]*c202B*c15G*c2P*p-0X&a-25V&a+1R Name: Vianey Downing : 1935 F80 MedRec: [id number] AcctNum: [id number] Prepared: MonMar 10, 2016 15:45 by Interface Page 10 of 13 pMD [facility] [place] [facility] EMERGENCY RECORD RESULTS RADIOLOGY: XR Chest 1 View Portable Observe DT: MonMar 10, 2016 12:27, CXRP RADIOGRAPH CHEST 1 VIEW: HISTORY: An 80-year-old female with acute chest pain. FINDINGS: The thoracic aorta is tortuous and ectatic. There is no evidence of air space density, pneumothorax , or pulmonary edema. The lateral costophrenic angles are sharp. IMPRESSION: 1) No acute pulmonary findings. 2) Ectasia of thoracic aorta. jn [] POS: [facility] . (14:35 LWAL) LABORATORY: Magnesium Collection DT: MonMar 10, 2016 12:38, Magnesium 2.0 mg/dL, Range (1.6-2.6), NOTE: Higher values can be expected in females during menses . (13:09 SCHI) CK (CPK) Collection DT: MonMar 10, 2016 12:38, CK (CPK) 57 U/L, Range (29-168). (13:09 [facility]I) Comprehensive Metabolic Panel Collection DT: MonMar 10, 2016 12:38, Sodium 136 mmol/L, Range (136-145), Potassium 4.3 mmol/L, Range (3.5-5.1), Chloride 102 mmol/L, Range (98-107), Carbon Dioxide 25 mmol/L, Range (23-31), Anion Gap 13 mmol/L, Range (10-20), BUN (Urea Nitrogen) 18 mg/dL, Range (9.8-20.1), Creatinine 0.73 mg/dL, Range (0.6-1.1), Estimated GFR-MDRD 77 , Reference Range for Estimated GFR: Greater than 90, mL/min/1.73 m2 NOTE: The MDRD equation has not been validated for use, with the elderly (over 70 years of age), women, patients with, serious comorbid condition or persons with extremes of body size, muscle, mass, or nutritional status. , Glucose 83 mg/dL, Range (83-110), Calcium 9.0 mg/dL, Range (7.8-10.44), Bilirubin, Total 0.3 mg/dL, Range (0.2-1.2), Protein, Total 6.6 g/dL, Range (5.8-8.1), NOTE: Plasma values are generally 0.3 to 0.5 g/dL higher than serum values, due to the presence of fibrinogen. , &a-1R&a+25V*p+0X*i8770D*c202B*c15G*c2P*p-0X&a-25V&a+1R Name: Vianey Downing : 1935 F80 MedRec: [id number] AcctNum: [id number] Prepared: MonMar 10, 2016 15:45 by Interface Page 11 of 13 pMD [facility] [place] EMERGENCY RECORD Albumin 3.5 g/dL, Range (3.4-4.8), Globulin 3.1 g/dL, Range (2.4-3.5), *Alb/Glob Ratio 1.1 - L g/dL, Range (1.2-2.2), Alkaline Phosphatase 86 U/L, Range (40-150), AST (SGOT) 17 U/L, Range (5-34), ALT (SGPT) 15 U/L, Range (0-55). (13:09 [facility]) D-Dimer (Quantitative) Collection DT: [facility] Mar 10, 2016 12:38, See comment below , Anticoagulant? NONE Medical Necessity SUSPECT COAGULOPATHY , *D-Dimer Test 0.57 - H *mcg/mL, Range (0.27-0.43), * Reference Range Units: mcg/mL of fibrinogen equivalent, units(FEU) Based upon a retrospective study of [facility] patients in July 2005, a result of Less than 0.44 mcg/mL FEU is, predictive of the absence of a DVT or PE. . (13:09 [facility]I) PTT Collection DT: MonMar 10, 2016 12:38, See comment below , Anticoagulant? NONE Medical Necessity SUSPECT COAGULOPATHY , PTT 26.6 SEC, Range (22.9-36.1). [facility] Protime with INR Collection DT: MonMar 10, 2016 12:38, See comment below , Anticoagulant? NONE Medical Necessity SUSPECT COAGULOPATHY , Prothrombin Time 13.4 SEC, Range (12.0-14.7), INR-International Normal Ratio 1.0 , ATTENTION: READ CAREFULLY , The, recommended therapeutic ranges for oral anticoagulant treatments are: , , Low Intensity: 1.5 - 2.0 Moderate Intensity: 2.0, - 3.0 High Intensity (1): 2.5 - 3.5 High, Intensity (2): 3.0 - 4.0 CRITICAL: >, 4.0 . (13[facility] CBC with Differential Collection DT: MonMar 10, 2016 12:38, White Blood Cell (WBC) Count 7.6 thou/uL, Range (4.8-10.8), *Red Blood Cell (RBC) Count 3.91 - L mill/uL, Range (4.20-5.40), *Hemoglobin 11.3 - L g/dL, Range (12.0-16.0), *Hematocrit 33.5 - L %, Range (36.0-47.0), Mean Corpuscular Volume 85.7 fl, Range (81.0-99.0), Mean Corpuscular Hemoglobin 28.9 pg, Range (27.0-31.0), Mean Corpuscular HGB CONC 33.8 g/dL, Range (32.0-36.0), &a-1R&a+25V*p+0X*u2663P*c202B*c15G*c2P*p-0X&a-25V&a+1R Name: Vianey Downing : 1935 F80 MedRec: [id number] AcctNum: [id number] Prepared: MonMar 10, 2016 15:45 by Interface Page 12 of 13 pMD [facility] [place] [facility] EMERGENCY RECORD RBC Distribution Width 13.7 %, Range (11.5-14.5), Platelet Count 189 thou/uL, Range (130-400), Mean Platelet Volume 8.7 fL, Range (7.4-10.4), %Neutrophils 62.2 %, Range (42.0-75.0), %Lymphocytes 22.0 %, Range (21.0-51.0), %Monocytes 9.9 %, Range (0.0-10.0), %Eosinophils 4.6 %, Range (0.0-10.0), *%Basophils 1.4 - H %, Range (0.0-1.0), #Neutrophils 4.7 thou/uL, Range (1.40-6.50), #Lymphocytes 1.7 thou/uL, Range (1.20-3.40), *#Monocytes 0.8 - H thou/uL, Range (0.11-0.59), #Eosinphils 0.3 thou/uL, Range (0.0-0.7), #Basophils 0.1 thou/uL, Range (0.0-0.2). (13[facility] B type Natriuretic Peptide Collection DT: MonMar 10, 2016 12:38, B type Natriuretic Peptide 45.8 pg/mL, Range (0-100). (13:52 [facility]) Cardiac Profile w/CKMB & TropI Collection DT: MonMar 10, 2016 12:38, CKMB 1.4 ng/mL, Range (0-6.6), Troponin I Less than 0.010 ng/mL, Range (< 0.028), Reference Range , 0.00 - 0.028 ng/mL Negative 0.029 - 0.29 ng/mL , Indeterminate Greater or Equal to 0.3 ng/mL Strongly suggests [place] , . (13:52 [facility]) Daniels: SARAHI=LALO Stafford, Ghada [place]EN[place]OD=MD Bisi, Misbah LWAL=LALO Mccann, Lucy [facility] Houser, Marka &a-1R&a+25V*p+0X*t6961V*c202B*c15G*c2P*p-0X&a-25V&a+1R Name: Vianey Downing Ace : 1935 F80 MedRec: [id number] AcctNum: [id number] Prepared: MonMar 10, 2016 15:45 by Interface Page 13 of 13 pMD MTDD
== END 2016-03-10 15:32 | disposition short-term general hospital (02) ==
LOC: MADERS 11:58
DX: I82.4Z2 Acute embolism and thrombosis of unspecified deep veins of left distal lower extremity (principal); I10 Essential (primary) hypertension; F32.9 Major depressive disorder, single episode, unspecified; J44.9 Chronic obstructive pulmonary disease, unspecified
CPT/HCPCS: 36415; 71010; 80053; 82550; 82553; 83735; 83880; 84484; 85025; 85379; 85610; 85730; 93005; 94760

== ENCOUNTER 2016-06-09 11:10 | Outpatient (CLI) | payer MEDICARE ==
[2016-06-09 11:25] LABS: Bilirubin Negative (Negative); Blood, Urine Negative (Negative); Clarity Clear (Clear); Glucose, Urine (Dipstick) Negative (Negative); Leukocyte Negative (Negative); Nitrite Negative (Negative); Protein, Urine (Dipstick) Negative (Neg-Trace); Urobilinogen 0.2 mg/dL (0.2-1.0)
[2016-06-09 11:29] LABS: Bacteria/HPF None Seen HPF (None Seen); RBC/HPF 0-3 HPF (0-3); Squamous Epithelial 0-3 HPF (0-3); WBC/HPF 0-3 HPF (0-3)
== END 2016-06-09 11:11 | disposition home or self-care (01) ==
LOC: MADLAB 11:10
PROVIDERS: ATTEND Internal Medicine
DX: G30.1 Alzheimer's disease with late onset (principal); J44.9 Chronic obstructive pulmonary disease, unspecified
CPT/HCPCS: 36415; 81001; 87086